=== PATIENT | male | born 1950 | race Caucasian/White ===

== ENCOUNTER 2018-10-14 07:27 | Outpatient (CLI) | payer MEDICARE ==
--- NOTE | 2018-10-14 12:56 | NM ---
RADIONUCLIDE GASTRIC EMPTYING SCAN: HISTORY: Functional dyspepsia. RADIOPHARMACEUTICAL: 2.1 mCi Technetium 99m sulfur colloid orally in scrambled eggs. FINDINGS: There is 49% emptying of the ingested gastric contents at 1 hour, 89% emptying at 2 hours, 83% emptyi ng at 3 hours, and 100% emptying at 4 hours. The calculated gastric emptying half-time measures 68 minutes. IMPRESSION: Normal exam. POS: [facility]
== END 2018-10-14 07:28 | disposition home or self-care (01) ==
LOC: NM 07:27
PROVIDERS: ATTEND Internal Medicine Gastroenterology
DX: K21.9 Gastro-esophageal reflux disease without esophagitis (principal); R10.13 Epigastric pain
CPT/HCPCS: 78264; A9541

== ENCOUNTER 2023-06-08 10:21 | Outpatient (CLI) | payer MEDICARE ==
[2023-06-08] MEDS ORDERED: Barium Sulfate 96% 176 GM BOT (xray ONLY) PO ONE (10:57)
== END 2023-06-08 10:22 | disposition home or self-care (01) ==
LOC: RAD 10:21
PROVIDERS: ATTEND Internal Medicine Gastroenterology
DX: K21.9 Gastro-esophageal reflux disease without esophagitis (principal); R14.0 Abdominal distension (gaseous); K44.9 Diaphragmatic hernia without obstruction or gangrene
CPT/HCPCS: 74246